=== PATIENT | female | born 1950 ===

== ENCOUNTER 2021-06-19 16:25 | Outpatient (REF) | payer MEDICARE, SELFPAY ==
[2021-06-19 17:16] LABS: Abs Immature Grans 0.06 10^3/uL (0.0-0.06); Absolute Basophil Count 0.05 10^3/uL (0.0-0.2); Absolute Lymphocyte Count 1.42 10^3/uL (1.2-3.4); Absolute Monocyte Count 1.13 10^3/uL (0.1-0.8); Absolute Neutrophil Count 5.87 10^3/uL (1.2-6.7); Basophils % 0.6; Eosinophils % 5.5; HCT 28.2 % (36.0-46.0); HGB 8.9 g/dL (11.2-15.7); Immature Grans % 0.7; Lymphocytes % 15.7; MCH 33.5 pg (27.0-33.0); MCHC 31.6 % (32.0-36.0); MPV 12.7 fL (8.0-11.0); Monocytes % 12.5; Nucleated RBC 0 %; Platelet Count 315 10^3/uL (130-400); RBC 2.66 10^6/uL (3.93-5.22); RDW 16.5 % (11.7-14.6); RDW-SD 61.6 fL; WBC 9.03 10^3/uL (4.4-10.8)
[2021-06-19 17:41] LABS: Anisocytosis 1+; Basophilic Stippling 1+; Diff Comment RBC Morph Reviewed; Hypochromasia 1+; Macrocytosis 1+
[2021-06-19 18:04] LABS: Iron 31 ug/dL (50-170); Total Iron Binding Capacity 224 ug/dL (250-450); Transferrin Sat 14 % (15-50)
[2021-06-19 18:34] LABS: ALT 23 U/L (14-59); AST 21 U/L (15-37); Alkaline Phosphatase 120 U/L (46-116); Anion Gap 5.8 mmol/L (3-11); BUN 18 mg/dL (7-18); Bilirubin, Total 0.6 mg/dL (0.2-1.0); CO2 30.2 mmol/L (21.0-32.0); CREATININE 1.3 mg/dL (0.55-1.02); Calcium 9.3 mg/dL (8.5-10.1); Chloride 109 mmol/L (98-107); Estimated GFR 40.26 (mL/min/1.73m2); Glucose 101 mg/dL (74-106); Magnesium 2.1 mg/dL (1.8-2.4); Potassium 4.5 mmol/L (3.5-5.1); Sodium 145 mmol/L (136-145); TSH (W/Ref FT4) 16.42 uIU/mL (0.36-3.74); Total Protein 6.4 g/dL (6.4-8.2)
[2021-06-19 19:17] LABS: FREE T4 0.92 ng/dL (0.76-1.46)
[2021-06-19 19:54] LABS: Ferritin 137 ng/mL (8-252)
[2021-06-19 20:13] LABS: Vitamin B12 > 2000 pg/mL (193-986)
== END 2021-06-19 16:26 | disposition home or self-care (01) ==
LOC: LBN 16:25
PROVIDERS: Visit Provider Nurse Practitioner Gerontology
DX: E03.9 Hypothyroidism, unspecified (principal); D50.9 Iron deficiency anemia, unspecified; D51.8 Other vitamin B12 deficiency anemias; I50.9 Heart failure, unspecified; I48.91 Unspecified atrial fibrillation
CPT/HCPCS: 80053; 82607; 82728; 82746; 83540; 83550; 83735; 84439; 84443; 85025

== ENCOUNTER 2021-06-26 11:17 | Outpatient (REF) | payer MEDICARE, SELFPAY ==
[2021-06-26 11:54] LABS: Abs Immature Grans 0.02 10^3/uL (0.0-0.06); Absolute Basophil Count 0.07 10^3/uL (0.0-0.2); Absolute Eosinophil Count 0.55 10^3/uL (0.0-0.7); Absolute Lymphocyte Count 1.29 10^3/uL (1.2-3.4); Absolute Monocyte Count 0.81 10^3/uL (0.1-0.8); Absolute Neutrophil Count 6.92 10^3/uL (1.2-6.7); Basophils % 0.7; Eosinophils % 5.7; HCT 28.9 % (36.0-46.0); HGB 9.2 g/dL (11.2-15.7); Immature Grans % 0.2; Lymphocytes % 13.4; MCH 33.7 pg (27.0-33.0); MCHC 31.8 % (32.0-36.0); MCV 105.9 fL (80-95); MPV 11.8 fL (8.0-11.0); Monocytes % 8.4; Neutrophils % 71.6; Nucleated RBC 0 %; Platelet Count 281 10^3/uL (130-400); RBC 2.73 10^6/uL (3.93-5.22); RDW 16.5 % (11.7-14.6); WBC 9.66 10^3/uL (4.4-10.8)
== END 2021-06-26 11:18 | disposition home or self-care (01) ==
LOC: LBN 11:17
PROVIDERS: Visit Provider Nurse Practitioner Gerontology
DX: K92.2 Gastrointestinal hemorrhage, unspecified (principal)
CPT/HCPCS: 85025

== ENCOUNTER 2021-07-03 15:21 | Outpatient (REF) | payer MEDICARE, SELFPAY ==
[2021-07-03 17:11] LABS: ALT 24 U/L (14-59); AST 16 U/L (15-37); Albumin 3.1 g/dL (3.4-5.0); Alkaline Phosphatase 144 U/L (46-116); Anion Gap 7.5 mmol/L (3-11); BUN 25 mg/dL (7-18); Bilirubin, Total 0.4 mg/dL (0.2-1.0); CO2 31.5 mmol/L (21.0-32.0); CREATININE 1.5 mg/dL (0.55-1.02); Calcium 9.1 mg/dL (8.5-10.1); Chloride 103 mmol/L (98-107); Estimated GFR 34.13 (mL/min/1.73m2); Glucose 193 mg/dL (74-106); Potassium 4.2 mmol/L (3.5-5.1); Sodium 142 mmol/L (136-145); Total Protein 6.3 g/dL (6.4-8.2)
[2021-07-03 17:30] LABS: Abs Immature Grans 0.04 10^3/uL (0.0-0.06); Absolute Basophil Count 0.06 10^3/uL (0.0-0.2); Absolute Lymphocyte Count 1.26 10^3/uL (1.2-3.4); Absolute Monocyte Count 1.07 10^3/uL (0.1-0.8); Absolute Neutrophil Count 7.33 10^3/uL (1.2-6.7); Basophils % 0.6; Eosinophils % 4.9; HCT 29.3 % (36.0-46.0); HGB 9.3 g/dL (11.2-15.7); Immature Grans % 0.4; Lymphocytes % 12.3; MCH 33.7 pg (27.0-33.0); MCHC 31.7 % (32.0-36.0); MCV 106.2 fL (80-95); Monocytes % 10.4; Neutrophils % 71.4; Nucleated RBC 0 %; Platelet Count 240 10^3/uL (130-400); RBC 2.76 10^6/uL (3.93-5.22); RDW 15.9 % (11.7-14.6); WBC 10.26 10^3/uL (4.4-10.8)
[2021-07-03 21:29] LABS: Diff Comment RBC Morph Reviewed; Macrocytosis 3+
[2021-07-03 22:32] LABS: Bilirubin Negative (Negative); Blood Small (Negative); Clarity Sl Cloudy (Clear); Glucose Negative (Negative); Ketones Negative (Negative); Leukocyte Esterase Small (Negative); Nitrite Negative (Negative); Urobilinogen 0.2 EU/dL (Up TO 0.2)
[2021-07-03 22:45] LABS: Bacteria Many HPF (Negative); C & S Indicated? Yes; Casts Negative LPF (Negative); Crystals Negative HPF (Negative); Epithelial Cells Negative HPF (Negative); Mucus Negative (Negative); Other Cells Negative (Negative); RBC Negative HPF (0-2)
== END 2021-07-03 15:22 | disposition home or self-care (01) ==
LOC: LBN 15:21
PROVIDERS: Visit Provider Nurse Practitioner Gerontology
DX: N39.0 Urinary tract infection, site not specified (principal); I13.0 Hypertensive heart and chronic kidney disease with heart failure and stage 1 through stage 4 chronic kidney disease, or unspecified chronic kidney disease; E66.01 Morbid (severe) obesity due to excess calories; I21.3 ST elevation (STEMI) myocardial infarction of unspecified site; M62.81 Muscle weakness (generalized)
CPT/HCPCS: 80053; 87077; 81003; 81015; 85025; 87086; 87186

== ENCOUNTER 2021-07-09 15:02 | Outpatient (REF) | payer MEDICARE, SELFPAY ==
[2021-07-09 17:26] LABS: Abs Immature Grans 0.04 10^3/uL (0.0-0.06); Absolute Basophil Count 0.06 10^3/uL (0.0-0.2); Absolute Eosinophil Count 0.76 10^3/uL (0.0-0.7); Absolute Lymphocyte Count 1.27 10^3/uL (1.2-3.4); Absolute Monocyte Count 0.91 10^3/uL (0.1-0.8); Absolute Neutrophil Count 7.34 10^3/uL (1.2-6.7); Basophils % 0.6; Eosinophils % 7.3; HCT 31.8 % (36.0-46.0); HGB 9.9 g/dL (11.2-15.7); Immature Grans % 0.4; Lymphocytes % 12.2; MCH 33.7 pg (27.0-33.0); MCHC 31.1 % (32.0-36.0); MCV 108.2 fL (80-95); MPV 12.2 fL (8.0-11.0); Monocytes % 8.8; Neutrophils % 70.7; Nucleated RBC 0 %; Platelet Count 251 10^3/uL (130-400); RBC 2.94 10^6/uL (3.93-5.22); RDW 15.5 % (11.7-14.6); WBC 10.38 10^3/uL (4.4-10.8)
[2021-07-09 17:47] LABS: Diff Comment RBC Morph Reviewed; Macrocytosis 2+; Polychromasia Present
== END 2021-07-09 15:03 | disposition home or self-care (01) ==
LOC: LBN 15:02
PROVIDERS: Visit Provider Internal Medicine
DX: E11.22 Type 2 diabetes mellitus with diabetic chronic kidney disease (principal); E03.9 Hypothyroidism, unspecified; N18.30 Chronic kidney disease, stage 3 unspecified; I13.0 Hypertensive heart and chronic kidney disease with heart failure and stage 1 through stage 4 chronic kidney disease, or unspecified chronic kidney disease
CPT/HCPCS: 85025

== ENCOUNTER 2021-07-18 18:51 | Outpatient (REF) | payer MEDICARE, SELFPAY ==
[2021-07-18 20:10] LABS: Abs Immature Grans 0.04 10^3/uL (0.0-0.06); Absolute Basophil Count 0.08 10^3/uL (0.0-0.2); Absolute Eosinophil Count 0.44 10^3/uL (0.0-0.7); Absolute Monocyte Count 1.02 10^3/uL (0.1-0.8); Basophils % 0.7; HCT 32.8 % (36.0-46.0); HGB 10.5 g/dL (11.2-15.7); Immature Grans % 0.4; Lymphocytes % 16.7; MCH 33.2 pg (27.0-33.0); MCV 103.8 fL (80-95); MPV 12.4 fL (8.0-11.0); Monocytes % 9.2; Nucleated RBC 0 %; Platelet Count 307 10^3/uL (130-400); RBC 3.16 10^6/uL (3.93-5.22); RDW 14.7 % (11.7-14.6); RDW-SD 56.7 fL; WBC 11.11 10^3/uL (4.4-10.8)
[2021-07-18 20:17] LABS: Absolute Lymphocyte Count 1.86 10^3/uL (1.2-3.4); Absolute Neutrophil Count 7.67 10^3/uL (1.2-6.7)
[2021-07-18 20:50] LABS: BUN 28 mg/dL (7-18); CREATININE 1.5 mg/dL (0.55-1.02); Calcium 9.5 mg/dL (8.5-10.1); Chloride 106 mmol/L (98-107); Estimated GFR 34.13 (mL/min/1.73m2); Glucose 127 mg/dL (74-106); Sodium 146 mmol/L (136-145); TSH (W/Ref FT4) 10.15 uIU/mL (0.36-3.74)
== END 2021-07-18 18:52 | disposition home or self-care (01) ==
LOC: LBN 18:51
PROVIDERS: Visit Provider Internal Medicine
DX: E11.22 Type 2 diabetes mellitus with diabetic chronic kidney disease (principal); N18.30 Chronic kidney disease, stage 3 unspecified; E78.5 Hyperlipidemia, unspecified; F33.40 Major depressive disorder, recurrent, in remission, unspecified
CPT/HCPCS: 80048; 84439; 84443; 85025